=== PATIENT | female | born 1995 | race Caucasian/White ===

== ENCOUNTER 2018-04-18 08:40 | Observation (INO) ==
[~2018-04-18 08:40] MED LIST: LIDOCAINE W/ SODIUM BICARB 0.5 ML SYR SUBD PRN; Nasal Sanitizer POPSWAB ampule 3 AMP (Nozin) PREOP DOSE ENOS SCH
[2018-04-18] MEDS ORDERED: LIDOCAINE W/ SODIUM BICARB 0.5 ML SYR ONE (08:49)
[2018-04-18] MEDS ORDERED: Lactated Ringers 1,000 ML PRIMARY IV ONE ×2 (08:49→11:29)
[2018-04-18 08:58] LABS: URINE SPECIFIC GRAVITY - MAN 1.015
[2018-04-18] MEDS: Lactated Ringers 1,000 ML PRIMARY IV SCH ×2 (09:00→17:00)
[2018-04-18 09:01] LABS: BILIRUBIN,URINE NEGATIVE (NEG); CLARITY,URINE CLEAR (CLEAR); COLOR,URINE YELLOW (Y); GLUCOSE, URINE (UA) NEGATIVE (NEG); OCCULT BLOOD,URINE NEGATIVE (NEG); PROTEIN,URINE NEGATIVE (NEG); SQUAMOUS EPITHELIAL CELL,UR MANY; UROBILINOGEN,URINE 0.2 EU/dL (0.2)
[2018-04-18 09:02] LABS: BACTERIA,URINE FEW; URINE SAMPLE TYPE CLEAN CATCH URINE
[2018-04-18] MEDS ORDERED: Acetaminophen 1000mg Inj 1,000 MG/100 ML VIAL IV ONE (09:40)
[2018-04-18] MEDS ORDERED: ONDANSETRON 4 MG/2 ML VIAL ONE (09:49)
[2018-04-18] MEDS ORDERED: SCOPOLAMINE HYDROBROMIDE 1.5 MG - 1 EACH PATCH TRANSDERM ONE (09:49)
[2018-04-18] MEDS ORDERED: PROPOFOL 10 MG/1 ML (200 MG/20 ML) VIAL IV ONE (09:53)
[2018-04-18] MEDS ORDERED: LIDOCAINE MPF 2% - 5 ML (20 MG/1 ML) ONE (09:53)
[2018-04-18] MEDS ORDERED: MIDAZOLAM 5 MG/1 ML ONE (09:54)
[2018-04-18] MEDS ORDERED: fentaNYL Inj 250 MCG/5 ML VIAL ONE (09:54)
[2018-04-18] MEDS ORDERED: ROCURONIUM 10 MG/1 ML - 5 ML VIAL IVP ONE (09:56)
[2018-04-18] MEDS ORDERED: KETAMINE HCL 100 MG/2 ML SYRINGE IV ONE (09:56)
[2018-04-18] MEDS ORDERED: BUPivacaine Inj 0.25% PF - 10ml vial ONE ×2 (11:09→11:14)
[2018-04-18] MEDS ORDERED: SUFENTANIL 50 MCG/1 ML ONE (11:10)
[2018-04-18] MEDS ORDERED: BUPivacaine Inj 0.5% PF (5mg/ml) 30ml vial ONE (11:42)
[2018-04-18] MEDS ORDERED: BUPivacaine Liposome/PF (Exparel) Inj 20ml vial INFIL ONE (11:42)
[2018-04-18] MEDS ORDERED: SUGAMMADEX SODIUM 200 MG/2 ML VIAL IV ONE (11:45)
[2018-04-18] MEDS ORDERED: KETOROLAC 30 MG/1 ML VIAL ONE (11:54)
[2018-04-18] MEDS ORDERED: LIDOCAINE HCL 2 % 10 ML JELLY URO-JECT TOPICAL PRN ×2 (12:19→16:54)
[2018-04-18] MEDS ORDERED: IBUPROFEN 800 MG TABLET PO PRN ×2 (12:19→16:53)
[2018-04-18] MEDS ORDERED: Ondansetron ODT Tab 8 MG TAB PO PRN ×2 (12:19→16:54)
[2018-04-18] MEDS ORDERED: oxyCODONE-ACETAMINOPHEN 5-325 TAB PO PRN (12:19)
[2018-04-18] MEDS: HYDROmorphone 2 MG/1 ML IVP PRN ×3 (12:24→12:31)
[2018-04-18] MEDS ORDERED: Prochlorperazine Edisylate Inj 10mg/2ml vial IVP PRN ×2 (12:24→16:55)
[2018-04-18] MEDS ORDERED: LIDOCAINE W/ SODIUM BICARB 0.5 ML SYR SUBD PRN ×2 (12:24→16:54)
--- NOTE | 2018-04-18 12:24 | CRNA.PROGR ---
Anesthesia Recovery Phase I - Post Anesthesia Evaluation Patient's Condition on Arrival in Phase I: Stable Pain Level: 5
--- NOTE | 2018-04-18 12:24 | CRNA.PROGR ---
Anesthesia Time - Procedure/Recovery Time Start Date: 04/18/18 End Date: 04/18/18 Anesthesia : Time In: 10:38 Anesthesia : Time Out: 12:23 Anesthesia : Total Time: 105 - Total Anesthesia Time Total Anesthesia Time (minutes): 105 - Other Weight: 57.606 kg Height: 5 ft 4 in Body Mass Index (BMI): 21.8 Physical Status: P2
--- NOTE | 2018-04-18 12:26 | OB.OP.NOTE ---
Operative Report Surgeon: Dr. Crawford Hot Worker: Riky Harding MD Anesthesia Type: General Anesthesia Provider: Donnie Munson CRNA Surgery Date: 04/18/18 Preoperative Diagnosis: Large Pelvic Mass Postoperative Diagnosis: Large Right Ovarian with Multilocular Serous and Dermoid Cysts Procedure: Laparoscopic RSO with Mini-Lap for specimen extraction. Estimated Blood Loss (mL): 20 Fluids: 1400 ml Complications: None identified. Findings at Surgery: The right ovary was replaced with a large, multilocular cyst measuring [id number] cm. It was removed with the right fallopian tube intact. The mass was opened on the back table and noted to contain serous fluid in the largest compartment. There was also a much smaller dermoid cyst containing hair and sebaceous material. The uterus and left adnexa were normal. Indications for the Procedure: Large pelvic mass noted on pelvic US. Description of Procedure: See dictated operative report. Plan: Routine post op care and discharge to home.
[2018-04-18] MEDS ORDERED: KETOROLAC 15 MG/1 ML VIAL IVP SCH ×2 (12:30→17:00)
[2018-04-18] MEDS ORDERED: HYDROmorphone 2 MG/1 ML ONE (12:31)
[2018-04-18] MEDS: KETOROLAC 15 MG/1 ML VIAL IVP SCH (17:42)
[2018-04-18] MEDS: oxyCODONE-ACETAMINOPHEN 5-325 TAB PO PRN (18:46)
[2018-04-18 21:46] VITALS: RESP 16
[2018-04-19] MEDS: KETOROLAC 15 MG/1 ML VIAL IVP SCH ×2 (00:15→05:55)
[2018-04-19] MEDS: Lactated Ringers 1,000 ML PRIMARY IV SCH (00:18)
[2018-04-19] MEDS: oxyCODONE-ACETAMINOPHEN 5-325 TAB PO PRN (05:01)
[2018-04-19 05:24] VITALS: BP 93/42; TEMP 98.3; O2SAT 98
--- NOTE | 2018-04-19 08:23 | DCSUMMARY ---
Hospitalization Summary Admit Date: 04/18/2018 Discharge Date: 04/19/18 Primary Diagnosis:: Post op mini lap for extraction of large ovarian cyst Hospital Course: The patient underwent an uncomplicated LS RSO which required mini laparotomy for removal of the large mass intact. She was kept overnight for observation. She was discharged to home on POD 1 in good condition. F/u 1 week. Exam - Vitals Vital Signs: Vital Signs Temperature 98.3 F Temperature Source Temporal Artery Scan Pulse Rate [Apical] 74 Pulse Rate [Pulse Oximeter] 76 Pulse Rate 82 Respiratory Rate 16 Blood Pressure [Left Arm] 93/42 Blood Pressure 117/80 Pulse Ox 98 Oxygen Flow Rate RA Oxygen Delivery Method Room Air Height 5 ft 4 in Weight 127 lb
--- NOTE | 2018-04-19 08:24 | PDOC(PROG) ---
Subjective Post Op Day: 1 Pain Management: PO Waldrop Catheter: No Flatus: Yes Diet: Regular Ambulating: Yes Concerns / Additional Information: The patient is doing well this morning. Her pain is well controlled with PO meds. She is ready to go home. Assesstment / Plan Assessment / Plan: POD 1, doing well. Discharge to home.
== END 2018-04-19 08:56 | disposition home or self-care (01) ==
LOC: MED/SURG 08:40 → OR 08:40 → OPS 08:48 → MED/SURG 13:52
PROVIDERS: ADMIT Obstetrics & Gynecology; ATTEND Obstetrics & Gynecology

== ENCOUNTER 2019-02-22 10:48 | Inpatient (IN) ==
[2019-02-22] MEDS ORDERED: Metoclopramide Inj 10 MG/2 ML VIAL IV PRN (11:49)
[2019-02-22] MEDS ORDERED: NALOXONE 0.4 MG/1 ML VIAL IVP PRN (11:49)
[2019-02-22] MEDS ORDERED: ONDANSETRON 4 MG/2 ML VIAL IVP PRN ×2 (11:49→17:27)
[2019-02-22] MEDS ORDERED: BUTORPHANOL TARTRATE 2 MG/1 ML VIAL IVP PRN (11:49)
[2019-02-22] MEDS ORDERED: CefOXitin Inj 2 GM in Sodium Chloride 0.9% 100 ML IV PRN (11:49)
[2019-02-22] MEDS ORDERED: Nalbuphine Inj 20 MG/ML Ampule IVP PRN (11:49)
[2019-02-22] MEDS ORDERED: FAMOTIDINE 20 MG/2 ML VIAL IVP PRN ×2 (11:49)
[2019-02-22] MEDS ORDERED: CITRIC ACID/SODIUM CITRATE 30 ML CUP PO PRN (11:49)
[2019-02-22] MEDS ORDERED: Carboprost Inj 250 MCG/ML AMP IM PRN (11:49)
[2019-02-22] MEDS ORDERED: Phenylephrine Inj 50 MCG in Sodium Chloride 0.9% vial 0.5 ML IVP PRN (11:49)
[2019-02-22] MEDS ORDERED: Naloxone Inj 0.01 MG in Sodium Chloride 0.9% vial 1 ML IVP PRN (11:49)
[2019-02-22] MEDS ORDERED: fentaNYL Inj 100 MCG/2 ML VIAL IVP PRN (11:49)
[2019-02-22] MEDS ORDERED: METHYLERGONOVINE MALEATE 0.2 MG/1 ML VIAL IM PRN (11:49)
[2019-02-22] MEDS ORDERED: diphenhydrAMINE 50 MG/1 ML VIAL IVP PRN ×2 (11:49→17:27)
[2019-02-22] MEDS ORDERED: LIDOCAINE HCL 2 % 10 ML JELLY URO-JECT TOPICAL PRN ×2 (11:49→17:27)
[2019-02-22] MEDS ORDERED: LIDOCAINE W/ SODIUM BICARB 0.5 ML SYR SUBD PRN (11:49)
[2019-02-22] MEDS ORDERED: CALCIUM CARBONATE 500 MG (TUMS) CHEWABLE TABLET PO PRN ×2 (11:49→17:27)
[2019-02-22] MEDS ORDERED: MISOPROSTOL 200 MCG TABLET RECTAL PRN (11:49)
[2019-02-22] MEDS ORDERED: TERBUTALINE SULFATE 1 MG/1 ML SDV SUBCUT PRN (11:49)
[2019-02-22] MEDS ORDERED: Lidocaine 1% 10 MG/ML - 20 ML VIAL SUBCUT PRN (11:49)
[2019-02-22] MEDS ORDERED: OXYTOCIN 10 UNIT/1 ML IM PRN (11:49)
[2019-02-22] MEDS ORDERED: Oxytocin 20 Units + LR 20 UNIT/1,000 ML BAG IV SCH ×2 (12:00→17:30)
[2019-02-22] MEDS: Lactated Ringers-OB Dept 1,000 ML PRIMARY IV SCH (12:25)
[2019-02-22 12:37] LABS: Hematocrit [HCT] 39.8 % (37.0-47.0); Hemoglobin [HGB] 13.9 g/dL (12.0-16.0); MEAN CORPUSCULAR HGB CONC 34.9 g/dL (33-37); MEAN CORPUSCULAR VOLUME 90.2 FL (81-99); MEAN PLATELET VOLUME 10.1 FL (7.4-12.2); RED BLOOD COUNT 4.41 10^6/uL (4.20-5.40)
[2019-02-22] MEDS ORDERED: Lidocaine 1% 10 MG/ML - 20 ML VIAL INTRADERM PRN (17:27)
[2019-02-22] MEDS ORDERED: Ondansetron ODT Tab 4 MG TAB PO PRN (17:27)
[2019-02-22] MEDS ORDERED: ACETAMINOPHEN 325 MG TABLET PO PRN (17:27)
[2019-02-22] MEDS ORDERED: LANOLIN HPA 40 GM TUBE TOPICAL PRN (17:27)
[2019-02-22] MEDS ORDERED: BENZOCAINE/MENTHOL SPRAY 56 GM BOTTLE TOPICAL PRN (17:27)
[2019-02-22] MEDS ORDERED: diphenhydrAMINE 25 MG CAPSULE PO PRN (17:27)
[2019-02-22] MEDS ORDERED: GLYCERIN/WITCH HAZEL 1 BOX TOPICAL PRN (17:27)
[2019-02-22] MEDS: IBUPROFEN 800 MG TABLET PO PRN (17:47)
[2019-02-22] MEDS: HYDROcodone-APAP 5 MG -325 MG TABLET PO PRN (21:13)
[2019-02-23] MEDS: IBUPROFEN 800 MG TABLET PO PRN ×2 (02:35→12:33)
[2019-02-23] MEDS: HYDROcodone-APAP 5 MG -325 MG TABLET PO PRN ×3 (02:36→16:28)
[2019-02-23 05:03] LABS: Hematocrit [HCT] 34.9 % (37.0-47.0); Hemoglobin [HGB] 12.1 g/dL (12.0-16.0); MEAN CORPUSCULAR HGB CONC 34.7 g/dL (33-37); MEAN CORPUSCULAR VOLUME 91.6 FL (81-99); MEAN PLATELET VOLUME 10.3 FL (7.4-12.2); RED BLOOD COUNT 3.81 10^6/uL (4.20-5.40)
[2019-02-23] MEDS: Lactated Ringers-OB Dept 1,000 ML PRIMARY IV SCH (05:03)
[2019-02-23] MEDS ORDERED: Prenatal Multivitamin Tab 1 TAB TAB PO SCH (09:00)
[2019-02-23] MEDS ORDERED: DOCUSATE 100 MG CAPSULE PO SCH (09:00)
[2019-02-23 10:30] VITALS: RESP 18; O2SAT 99
[2019-02-23 12:34] VITALS: TEMP 98.2
[2019-02-23 17:09] VITALS: BP 100/68
== END 2019-02-23 16:45 | disposition home or self-care (01) | DRG 807 ==
LOC: OBOP 10:48 → OBIP 11:49
PROVIDERS: ADMIT Family Medicine; ATTEND Family Medicine